=== PATIENT | female | born 1995 | race Two or more races ===

== ENCOUNTER 2019-08-26 08:50 | Emergency (ER) | payer OTHER ==
[~2019-08-26] VITALS: Ht 167.6 cm; Wt 56.2 kg
[~2019-08-26 08:50] MED LIST: CEFADROXIL500 MG PO; CITRANATAL B-C1 EAC1; CLARITIN10 MG PO; ZITHROMAX TRI-500 MG PO
[2019-08-26] MEDS ORDERED: CLARITIN10 MG PO (11:44)
[2019-08-26] MEDS ORDERED: TUSNEL LIQUID178 ML PO (11:44)
== END 2019-08-26 12:47 | disposition home or self-care (01) ==
LOC: ER 08:50
DX: R05 Cough (principal)